=== PATIENT | male | born 1960 | race Caucasian/White ===

== ENCOUNTER 2017-04-02 01:57 | Emergency (ER) | payer OTHER ==
[2017-04-02 02:17] VITALS: BP 109/68; PULSE 62; TEMP 98.7; BMI 24.3
--- NOTE | 2017-04-02 03:26 | PDOC ---
History of Present Illness - General History Source: Patient Exam Limitations: No Limitations - History of Present Illness Initial Comments: 04/02/17 03:36 The patient is a 56 year old male with no significant past medical history who presents to the ED complaining of 2 days of progressively worsening right medial ankle pain, worse with bearing weight. He denies any trauma or injury. He denies fever or chills. He states he saw a room maid earlier today where his x-ray was unremarkable and he was started on Indomethacin. He states his pain has become unbearable, prompting him to come to the ED. <Wendie Chang - Last Filed: 04/02/17 03:36> <Tuyet Harris - Last Filed: 04/02/17 23:32> - General Chief Complaint: Pain Stated Complaint: RIGHT FOOT PAIN Time Seen by Provider: 04/02/17 02:18 Past History <Wendie Chang - Last Filed: 04/02/17 03:36> - Past Medical History Kidney Stones: Yes - Surgical History Abdominal Surgery: Yes (x2 hernia repair) - Psycho/Social/Smoking Cessation Hx Suicidal Ideation: No Smoking History: Never smoked Hx Alcohol Use: No Drug/Substance Use Hx: No Substance Use Type: None <Tuyet Harris - Last Filed: 04/02/17 23:32> - Past Medical History Allergies/Adverse Reactions: Allergies Allergy/AdvReac Type Severity Reaction Status Date / Time No Known Allergies Allergy Verified 04/02/17 02:15 Home Medications: Ambulatory Orders Clindamycin [Cleocin -] 300 mg PO Q6HPO #28 capsule 04/02/17 Indomethacin [Indocin -] 50 mg PO BID 04/02/17 Review of Systems - Review of Systems Able to Perform ROS?: Yes Comments:: 04/02/17 03:39 GENERAL/CONSTITUTIONAL: No fever or chills. No weakness. HEAD, EYES, EARS, NOSE AND THROAT: No change in vision. No ear pain or discharge. No sore throat CARDIOVASCULAR: No chest pain or shortness of breath. RESPIRATORY: No cough, wheezing, or hemoptysis. GASTROINTESTINAL: No nausea, vomiting, diarrhea or constipation. GENITOURINARY: No dysuria, frequency, or change in urination. MUSCULOSKELETAL: Right ankle pain. No muscle swelling or pain. No neck or back pain. SKIN: No rash NEUROLOGIC: No headache, vertigo, loss of consciousness, or change in strength/ sensation. ENDOCRINE: No increased thirst. No abnormal weight change. HEMATOLOGIC/LYMPHATIC: No anemia, easy bleeding, or history of blood clots. ALLERGIC/IMMUNOLOGIC: No hives or skin allergy. <Wendie Chang - Last Filed: 04/02/17 03:36> *Physical Exam - Vital Signs Last Vital Signs Temp Pulse Resp BP Pulse Ox 98.7 F 62 16 109/68 98 04/02/17 02:13 04/02/17 02:13 04/02/17 02:13 04/02/17 02:13 04/02/17 02:13 - Physical Exam Comments: 04/02/17 03:39 GENERAL: Awake, alert, and fully oriented, in no acute distress HEAD: No signs of trauma EYES: PERRLA, EOMI, sclera anicteric, conjunctiva clear ENT: Auricles normal inspection, hearing grossly normal, nares patent, oropharynx clear without exudates. Moist mucosa NECK: Normal ROM, supple, no lymphadenopathy, JVD, or masses LUNGS: Breath sounds equal, clear to auscultation bilaterally. No wheezes, and no crackles HEART: Regular rate and rhythm, normal S1 and S2, no murmurs, rubs or gallops ABDOMEN: Soft, nontender, normoactive bowel sounds. No guarding, no rebound. No masses EXTREMITIES: Right lower extremity: Anterior and inferior swelling and tenderness surrounding the medial malleolus. All other extremities: Normal range of motion, no edema. No clubbing or cyanosis. No cords, erythema, or tenderness NEUROLOGICAL: Cranial nerves II through XII grossly intact. Normal speech, normal gait SKIN: Warm, Dry, normal turgor, no rashes or lesions noted. <Wendie Chang - Last Filed: 04/02/17 03:36> - Vital Signs Last Vital Signs Temp Pulse Resp BP Pulse Ox 98.7 F 62 16 109/68 98 04/02/17 02:13 04/02/17 02:13 04/02/17 02:13 04/02/17 02:13 04/02/17 02:13 <Tuyet Harris - Last Filed: 04/02/17 23:32> ED Treatment Course - LABORATORY CBC & Chemistry Diagram: 04/02/17 03:55 04/02/17 03:55 <Tuyet Harris - Last Filed: 04/02/17 23:32> Medical Decision Making - Medical Decision Making 04/02/17 06:57 Pt comes with right ankle medial aspect pain and redness. He has elevated C- rective protein and elevated ESR. He has normal appearing xr of the ankle but he states that he is unable to bear weight. 04/02/17 23:31 Pt has an elevated crp and ESR. However ankle XR appears normal, and he is already hooked in with a room maid who he saw prior to his arrival in the ER. I will teat with clinda, as he has redness over the ankle. Follow with PMD. <Tuyet Harris - Last Filed: 04/02/17 23:32> *DC/Admit/Observation/Transfer - Attestations Scribe Attestion: 04/02/17 03:44 Documentation prepared by Wendie Chang, acting as medical charge entry specialist for Tuyet Harris MD. <Wendie Chang - Last Filed: 04/02/17 03:36> - Discharge Dispostion Admit: No <Tuyet Harris - Last Filed: 04/02/17 23:32> Diagnosis at time of Disposition: Cellulitis of foot - Discharge Dispostion Disposition: HOME Condition at time of disposition: Stable - Prescriptions Prescriptions: Clindamycin [Cleocin -] 300 mg PO Q6HPO #28 capsule - Patient Instructions Printed Discharge Instructions: DI for Cellulitis -- Adult
[2017-04-02 04:29] LABS: BASOPHIL 1.1 % (0-2.0); EOSINOPHIL 0.4 % (0-4.5); MCH 30.9 pg (25.7-33.7); MEAN CELL VOLUME 90.9 fl (80-96); NEUTROPHILS 74.2 % (42.8-82.8); PLATELET COUNT 210 K/MM3 (134-434); RDW 13.3 % (11.9-15.9); WHITE BLOOD COUNT 9.9 K/mm3 (4.0-10.0)
[2017-04-02 04:37] LABS: URIC ACID 5.8 mg/dL (2.6-7.2)
[2017-04-02 04:40] LABS: ALBUMIN 3.9 g/dl (3.4-5.0); ALK PHOS 121 U/L (45-117); ANION GAP 7 (8-16); BILIRUBIN,TOTAL 0.8 mg/dL (0.2-1.0); CALCIUM 8.1 mg/dL (8.5-10.1); CO2 25 mmol/L (21-32); COCKROFT - GAULT 106.54; CREATININE 0.8 mg/dL (0.7-1.3); GLUCOSE,RANDOM 109 mg/dL (74-106); SGOT/AST 27 U/L (15-37); SGPT/ALT 28 U/L (12-78); TOT PROT 6.9 g/dl (6.4-8.2)
[2017-04-02 04:58] LABS: C-REACTIVE PROTEIN 3.4 MG/DL (0.00-0.3)
[2017-04-02] MEDS ORDERED: CLINDAMYCIN HCL 150 MG CAPSULE (FP) PO ONE (07:00)
[2017-04-02] MEDS ORDERED: CLINDAMYCIN HCL 150 MG CAPSULE (FP) ONE (07:05)
== END 2017-04-02 07:15 | disposition home or self-care (01) ==
LOC: JER 01:57
DX: L03.115 Cellulitis of right lower limb (principal); R70.0 Elevated erythrocyte sedimentation rate; R79.82 Elevated C-reactive protein (CRP)
CPT/HCPCS: 36415; 73610-TC-RT; 80053; 84550; 85025; 85651; 86140; 99282-25